=== PATIENT | male | born 1930 | race Caucasian/White ===

== ENCOUNTER → 2017-02-25 | Outpatient (CLI) | payer MEDICARE, MEDICAID ==
[~2017-02-25] MED LIST: ACETAMINOPHEN500 M3 PO; AMLO2.5T PO; BISAC-EVAC10 MG PR; CIPRO 500MG TA500 MG PO; FLOMAX 0.4MG C0.4 MG PO; FUROSEMIDE40 MG PO; LASIX 40MG. TAB40 MG PO; NITROGLYCERIN0.4 MG SL; PANTOPRAZOLE SO40 MG PO; POTASSIUM CHLO10 ME3 PO; POTASSIUM10 MEQ/101 IV; TAMSULOSIN HYD0.4 MG PO; TROCHIBASE; ZANTAC 150150 MG PO
== END ==
LOC: RAD 06:53
DX: R07.9 Chest pain, unspecified (principal); I35.0 Nonrheumatic aortic (valve) stenosis; I10 Essential (primary) hypertension; I42.9 Cardiomyopathy, unspecified